=== PATIENT | female | born 2000 | race Caucasian/White ===

== ENCOUNTER 2021-08-30 19:25 | Emergency (ER) | payer BC, SELFPAY ==
[2021-08-30 19:26] VITALS: BP 132/73; PULSE 95; RESP 18; TEMP 36.2; O2SAT 96; BMI 18.1
--- NOTE | 2021-08-30 21:06 | ED.FEMALEGU ---
HPI - Female Genitourinary General Chief complaint: Urogenital-Female Stated complaint: no urination lastevening Time Seen by Provider: 08/30/21 21:06 Source: patient and family (Mother) Mode of arrival: ambulatory History of Present Illness HPI Narrative: This is a 21-year-old female without significant past medical history to include no history of/bladder/ureteral dysfunction who presents with inability to urinate since yesterday at 9:00 p.m.. Patient denies fevers, frequency symptoms prior to this occurring. Patient states that she has the urge to go but when she sits down she is unable to urinate. LMP-08/10/21 significant past history is that this has occurred with the patient in December of this year and at that time it was felt to be secondary to her medication which was discontinued and she was then placed on bethanechol. Patient states that had some difficulty since being placed on the, however this it was far worse. Patient denies any lower extremity numbness/tingling/weakness, saddle anesthesia or bowel difficulties. Related Data Allergies Allergy/AdvReac Type Severity Reaction Status Date / Time No Known Allergies Allergy Verified 08/30/21 21:09 Review of Systems Review of Systems: Pertinent positives and negatives as stated in HPI 10 point review of systems is otherwise negative. [facility] Past Medical History Source: nursing notes reviewed Social History Social History Advance Directives: No Advance Directives Information Provided: No Patient : No Physical Exam Vital Signs: Vital Signs: Last Vital Signs Temp 97.2 F 08/30/21 19:26 Pulse 95 08/30/21 19:26 Resp 18 08/30/21 19:26 BP 132/73 08/30/21 19:26 Pulse Ox 96 08/30/21 19:26 Body Mass Index 18.1 VITAL SIGNS: Reviewed. GENERAL: Well developed, well nourished, in no acute distress. HEAD: Normocephalic/atraumatic EYES: PERRLA, EOMI OROPHARYNX: no oral lesions noted, posterior pharynx clear LUNGS: Normal breath sounds. No adventitious sounds or accessory muscle use. SpO2<96> CARDIOVASCULAR: Regular rate and rhythm without noted murmurs, no JVD or lower extremity edema. ABDOMEN: Soft, non-tender, non-distended with bowel sounds, no CVA tenderness NEUROLOGIC: Alert and oriented x 4. Course Course Course Narrative: This is a 21-year-old female with history and clinical presentation consistent with urinary retention suspected to have some relation to decreased oral intake as bedside bladder scan shows approximately 450 cc. Patient states she has consumed 1 bottle of water throughout the day. Will evaluate for UA, U preg, renal function, and provide IV fluids and reassess. No clinical suspicion for cauda equina. Review of all investigations without acute findings and patient with attempt to urinate and states that she is unable and repeat bladder scan demonstrates 622 cc of urine. This is surprising as patient has received 2 L of IV fluids. However, patient continues to insist that she is unable to urinate and a Calle catheter will be placed and she will be provided with a referral to [facility] for further evaluation with patient and family understanding that she can follow-up with her own urologist as well. MDM - Female Genitourinary Lab Data Result diagrams: 08/30/21 22:12 Labs: Lab Results 08/30/21 08/31/21 08/31/21 Range/Units 22:12 00:19 00:19 Sodium 138 (135-145) mmol/L Potassium 3.3 (3.3-5.1) mmol/L Chloride 104 (96-108) mmol/L Carbon Dioxide 24 (22-29) mmol/L Anion Gap 13 (12-20) BUN 11 (9-16) mg/dL Creatinine 0.80 (0.5-1.4) mg/dL Estim Creat Clear Calc 76.4 Estimated GFR > 60 Random Glucose 104 (60-115) mg/dL Calcium 9.3 (8.4-10.2) mg/dL Total Bilirubin 0.5 (0.0-1.0) mg/dL AST 17 (5-31) U/L ALT 12 (0-31) U/L Alkaline Phosphatase 34 L (39-117) U/L Total Protein 6.8 (6.5-8.0) g/dL Albumin 4.6 (3.5-5.0) g/dL Urine Color YELLOW Urine Appearance CLEAR Urine pH 8.0 (5.0-8.0) Ur Specific Jermyn 1.015 (1.005-1.025) Urine Protein NEG (NEG-TRACE) MG/DL Urine Glucose (UA) NEG (NEG) MG/DL Urine Ketones NEG (NEG) MG/DL Urine Blood NEG (NEG) Urine Nitrite NEG (NEG) Ur Leukocyte Esterase NEG (NEG) Urine Test NEGATIVE (NEGATIVE) Discharge Plan Discharge Clinical Impression: Urinary retention Patient Disposition: Home, Self-Care Instructions: Calle Catheter Placement and Care (ED), Acute Urinary Retention in Women (ED) Additional Instructions: 1. Please follow-up with either your urologist on Wednesday morning for re-evaluation and further outpatient management, or you have been provided with a Urology referral here at [facility]. Return to the ER for acute worsening of symptoms. Referrals: Vahid Lopes MD [Physician] - 2 days Arlen Huntley NP [Primary Care Provider] - 2 days
[2021-08-30] MEDS: 0.9 % Sodium Chloride 2,000 ML 999 ML IV (22:15)
[2021-08-30 22:37] LABS: Alanine Aminotransferase 12 U/L (0-31); Albumin Level 4.6 g/dL (3.5-5.0); Alkaline Phosphatase 34 U/L (39-117); Anion Gap 13 (12-20); Aspartate Amino Transferase 17 U/L (5-31); Bilirubin Total 0.5 mg/dL (0.0-1.0); Blood Urea Nitrogen 11 mg/dL (9-16); Calcium 9.3 mg/dL (8.4-10.2); Carbon Dioxide 24 mmol/L (22-29); Chloride 104 mmol/L (96-108); Creatinine Clr Calc Pharmacy 76.4; Estimated Glomerular Filt Rate > 60; Glucose Random 104 mg/dL (60-115); Potassium 3.3 mmol/L (3.3-5.1); Sodium 138 mmol/L (135-145); Total Protein 6.8 g/dL (6.5-8.0)
[2021-08-31 00:26] LABS: UPreg QC Valid YES; Urine Pregnancy NEGATIVE (NEGATIVE)
[2021-08-31 00:27] LABS: Appearance Urine CLEAR; Color Urine YELLOW; Glucose Urine UA NEG (NEG); Leukocyte Esterase Urine NEG (NEG); Nitrite Urine NEG (NEG); Specific Gravity - Urine 1.015 (1.005-1.025); Urine Blood NEG (NEG); Urine Ketones NEG (NEG); Urine Protein NEG (NEG-TRACE)
== END 2021-08-31 00:58 | disposition home or self-care (01) ==
PROVIDERS: Emergency Provider Student in an Organized Health Care Education/Training Program; PCP Nurse Practitioner Family
DX: R33.9 Retention of urine, unspecified (principal); Z79.899 Other long term (current) drug therapy
CPT/HCPCS: 36415; 80053; 81003; 81025; 96360; 96361; 99284